=== PATIENT | female | born 1975 | race Asian ===

== ENCOUNTER 2017-01-22 14:04 | Emergency (ER) | payer MEDICAID ==
[~2017-01-22] VITALS: Ht 162.6 cm; Wt 66.6 kg
[~2017-01-22 14:04] MED LIST: AMOX1TAB10 PO; LORA10TA3 PO; SODI104S2 NASAL
[2017-01-22 14:28] VITALS: Ht 162.6 cm; Wt 66.6 kg
[2017-01-22] MEDS ORDERED: FLUT9.9S NASAL (16:08)
[2017-01-22] MEDS ORDERED: PSEU30TA38 PO (16:08)
[2017-01-22] MEDS ORDERED: AMOX1TAB10 PO (16:08)
--- NOTE | 2017-01-22 17:13 | ERD ---
ER Documentation Chief Complaint Chief Complaint nasal congestion x 2 weeks HPI 41-year-old female complaining of nasal congestion 2 weeks. Patient has a history of sinusitis and has a history of sinus surgery. Denies fever. Has dry cough. Denies sore throat. Has not taken medications for symptoms. Denies medical problems. NKDA. Surgical history: Denies. ROS All systems reviewed and are negative except as per history of present illness. Medications Home Meds Active Scripts Pseudoephedrine Hcl* (Pseudoephedrine Hcl*) 30 Mg Tablet, 30 MG PO Q6 Y for CONGESTION, #30 TAB Prov:KAYLEE CARRANZA PA-C 01/22/17 Fluticasone Propionate (Flonase Allergy Relief) 9.9 Ml [place].susp, 1 SPRAY NASAL BID, #1 BOTTLE TO EACH NOSTRIL Prov:KAYLEE CARRANZA PA-C 01/22/17 Amoxicillin/Potassium Clav (Amox-Clav 875-125 mg Tablet) 875-125 mg Tab, 1 TAB PO BID for 7 Days, #14 TAB Prov:KAYLEE CARRANZA PA-C 01/22/17 Sodium Chloride* (Lemitar*) 45 Ml [place], 2 SPRAY NASAL TID, #1 BOTTLE Prov:HAYLEE WHIPPLE PA-C 09/19/15 Amox Tr/Potassium Clavulanate (Amox Tr-K Clv 875-125 Mg Tab) 1 Tab Tablet, 1 TAB PO BID, #14 TAB Prov:HAYLEE WHIPPLE PA-C 09/19/15 Loratadine* (Loratadine*) 10 Mg Tablet, 10 MG PO DAILY, #20 TAB Prov:HAYLEE WHIPPLE PA-C 09/19/15 Allergies Allergies: Coded Allergies: No Known Allergy (Unverified , 01/22/17) PMhx/Soc Medical and Surgical Hx: pt denies Medical Hx, pt denies Surgical Hx History of Surgery: Yes (appendix) Anesthesia Reaction: No Hx Neurological Disorder: No Hx Respiratory Disorders: No Hx Cardiac Disorders: No Hx Psychiatric Problems: No Hx Alcohol Use: No Hx Substance Use: No Hx Tobacco Use: No Smoking Status: Never smoker Physical Exam Vitals Vital Signs Date Time Temp Pulse Resp B/P Pulse Ox O2 Delivery O2 Flow Rate FiO2 01/22/17 14:28 97.9 74 18 125/70 98 Physical Exam GENERAL: The patient is well-appearing, well-nourished, in no acute distress HEENT: Atraumatic. Conjunctivae are pink. Pupils equal, round, and reactive to light. There is no scleral icterus. Tympanic membranes clear bilaterally. Oropharynx clear. No nystagmus or photophobia. NECK: C-spine is soft and supple. There is no meningismus. There is no cervical lymphadenopathy. No JVD. No bruits. No goiter. CHEST: Clear to auscultation bilaterally. There are no rales, wheezes or rhonchi. HEART: Regular rate and rhythm. No murmurs, clicks, rubs or gallops. No S3 or S4. Procedures/MDM MDM: 41-year-old female complaining of nasal congestion 2 weeks. I have low suspicion for meningitis or sepsis. I have low suspicion for pneumonia. Patient has a history of bacterial sinusitis with history of sinus surgery and usually receives antibiotics for symptoms. I will cover for antibiotics and also give patient decongestant. She is discharged with strict ER precautions and recommended to follow-up with primary care within 1-2 days for close evaluation. All questions answered at discharge. Departure Diagnosis: Primary Impression: Sinusitis Condition: Stable Patient Instructions: Sinusitis, Abx Tx Referrals: [facility] YOU HAVE RECEIVED A MEDICAL SCREENING EXAM AND THE RESULTS INDICATE THAT YOU DO NOT HAVE A CONDITION THAT REQUIRES URGENT TREATMENT IN THE EMERGENCY DEPARTMENT. FURTHER EVALUATION AND TREATMENT OF YOUR CONDITION CAN WAIT UNTIL YOU ARE SEEN IN YOUR DOCTORS OFFICE WITHIN THE NEXT 1-2 DAYS. IT IS YOUR RESPONSIBILITY TO MAKE AN APPOINTMENT FOR FOLOW-UP CARE. IF YOU HAVE A PRIMARY DOCTOR --you should call your primary doctor and schedule an appointment IF YOU DO NOT HAVE A PRIMARY DOCTOR YOU CAN CALL OUR PHYSICIAN REFERRAL HOTLINE AT IF YOU CAN NOT AFFORD TO SEE A PHYSICIAN YOU CAN CHOSE FROM THE FOLLOWING [facility] [address] [facility] [address] [facility] [facility] [address] [facility] [address] [facility] [address] [facility]. [facility] [address] Additional Instructions: FOLLOW UP WITH YOUR PRIMARY CARE PHYSICIAN TOMORROW.Return to this facility if you are not improving as expected. KAYLEE CARRANZA PA-C Jan 22, 2017 17:13
[2017-01-22 17:18] VITALS: BP 130/71; PULSE 81; RESP 18; TEMP 97.9
== END 2017-01-22 17:19 | disposition home or self-care (01) ==
LOC: FTE 14:04
DX: J32.9 Chronic sinusitis, unspecified (principal)
CPT/HCPCS: 99283